=== PATIENT | male | born 1955 | race Caucasian/White ===

== ENCOUNTER 2022-01-09 11:30 | Emergency (ER) | payer OTHER, SELFPAY ==
[2022-01-09 12:09] VITALS: BP 135/80; PULSE 80; RESP 16; TEMP 36.4; O2SAT 96; BMI 27.8
--- NOTE | 2022-01-09 12:30 | CRLHL7_ITS ---
For Patients: As a result of the Century Cures Act, medical imaging exams and procedure reports are released immediately into your electronic medical record. You may view this report before your referring provider. If you have questions, please contact your health care provider. INDICATION: Dizziness. Sudden onset right sided headache. TECHNIQUE: CT head without contrast. COMPARISON: None. FINDINGS: Suboptimal evaluation secondary to motion artifact. Cerebral parenchyma: No evidence of acute territorial infarct. No acute intraparenchymal hemorrhage. No significant mass effect/midline shift. Normal doss-white matter differentiation. Extra-axial spaces: No extra-axial collection or hemorrhage. Ventricles: Unremarkable. Calvarium: Intact. Visualized paranasal sinuses/mastoid air cells: Polypoid mucosal thickening of the maxillary sinuses. Posterior fossa: No cerebellar tonsillar herniation. Visualized orbits: Thinning of the right lens. No acute abnormality. IMPRESSION: 1. No acute intracranial abnormality, within limitations of motion artifact. 2. Chronic bilateral maxillary sinusitis. Please note that all CT scans at this facility use dose modulation, iterative reconstruction, and/or weight-based dosing when appropriate to reduce radiation dose to as low as reasonably achievable. Dictated by Casey Mireles MD @ 01/09/2022 1:52:49 PM (Electronically Signed)
--- NOTE | 2022-01-09 12:32 | ED.GENADULT ---
HPI - General Adult General Time Seen by Provider: 12:32 Date Seen: 01/09/22 Chief complaint: Neuro Symptoms/Altered Deficit Stated complaint: dizziness/blood pressure/right eye pain Time Seen by Provider: 01/09/22 11:44 Source: patient History of Present Illness HPI narrative: Left eye due for the Alexys is a 66-year-old male with no real past medical history presents emerged department with with dizziness. Patient states that he has been around his sister's cats of the last 3 days, usually has allergies to them, he used some eyedrops. He was driving [address] when he developed some dizziness that started a couple hours ago, he had to pull his car over. The dizziness presents worse with head movement, he had trouble walking, did not have any falling from one side to the other, he did have a foreign body sensation worsen his right eye, he has had some increased tearing and congestion the recent exposure to cats. He was more concerned about the dizziness. 0 vomiting, no chest pain or shortness of breath, he denies any focal weakness. Denies any visual changes. No history of vertigo, no CAD or stroke history. He is not currently on any medications. Symptoms have improved, however he still has pain in his right eye. he does not have any headache. no history of migraines. Related Data Home Medications Medication Instructions Recorded Confirmed loratadine 10 mg tablet (Claritin) 10 mg PO DAILY 01/09/22 01/09/22 Previous Rx's Medication Instructions Recorded amoxicillin 500 mg-potassium 1 tab PO TID #20 tab 01/09/22 clavulanate 125 mg tablet (Augmentin) meclizine 25 mg tablet 25 mg PO TID #10 tab 01/09/22 Allergies Allergy/AdvReac Type Severity Reaction Status Date / Time No Known Drug Allergies Allergy Verified 01/09/22 12:14 Review of Systems Status of ROS: Reports: 10 or more systems reviewed and unremarkable except as noted in History and below [facility] Medical History (Updated 01/09/22 @ 14:24 by Daniel Santacruz MD) Cataract (lens) fragments in eye following cataract surgery, right eye Hyperlipemia Social History Smoking Status: Never smoker How often do you have a drink containing alcohol: 2-4 times a month AUDIT-C Alcohol total score: 2 Non-prescribed substance use: denies use Exam Narrative: Exam Narrative: General: Patient is no apparent distress, nontoxic in appearance. HEENT: Tympanic membranes within normal limits bilaterally, pupils equal round and reactive to light on the last, mildly fixed pupil which is reactive secondary to surgery cataract, extraocular muscles intact, mild conjunctival injection bilaterally. some lid swelling. Nose: Clear rhinorrhea. Mouth: Oropharynx clear and moist, symmetrical smile present Neck: Supple full range of motion Lungs: Clear to auscultation bilaterally: Heart: Normal sinus rhythm S1-S2 Abdomen: Soft nontender, bowel sounds present. Muscle skeletal: +5 strength upper lower extremity Neuro: GCS 15, cranial nerves 2-12 grossly intact, gait within normal limits, no focal deficit. Sharifa-Hallpike: Notable nystagmus when turning head to left. Pysch: Affect and mood normal Const: Vital Signs, click to edit/add: Vital Signs - 24 hr 01/09/22 12:09 01/09/22 14:30 01/09/22 14:37 Temperature 97.6 F 98.9 F 98.9 F Pulse Rate 69 Pulse Rate [Pulse Oximeter] 80 69 Respiratory Rate 16 14 12 Blood Pressure 153/93 H Blood Pressure [Ri ght Upper Arm] 135/80 153/93 H Pulse Oximetry 96 97 Course Course Hospital Course: AIDET performed. Vitals show mildly elevated blood pressure, will continue to monitor, no worrisome findings on exam, workup will include, 25 mg meclizine orally and scopolamine patch, will place IV, will obtain CT head without IV contrast, obtain EKG, CRP, CBC, CMP and TSH. Symptoms are improving. May also obtain ocular pressure at the eye clinic. Differential diagnosis includes subarachnoid hemorrhage, intracerebral hemorrhage, CORONER/MEDICAL EXAMINER vasculitis, CORONER/MEDICAL EXAMINER lesion, BPPV, labyrinthitis, Meniere's disease, fisted riders, migraine, MS, otitis media, viral syndrome, sinusitis, acute and closed angle glaucoma, temporal arteritis as well as other etiologies Reevaluation(s) Reevaluation #1: Patient is feeling better after above care given, EKG showed normal sinus rhythm, bpm 71, no ectopy or acute ST changes, no comparisons. CT head showed no acute intracranial abnormality, did show chronic maxillary sinusitis which is likely explaining his symptoms, blood pressure improved during his stay. He was ambulating to and from the restroom with no difficulty, dizziness resolved. otherwise reassuring, plan to discharge prescription for Augmentin to be given with the meclizine over the next 7-10 days, he can leave the scopolamine patch over the next 72 hours, appointment made to ophthalmology here in [place] today for for close follow-up and eye pressure evaluation. He should follow-up with a primary care provider over the next 7-10 days when he returns to [place]. Return precautions given Time: 14:25 Vital Signs Vital signs: Initial Vital Signs Temperature 97.6 F 01/09/22 12:09 Temperature Source Temporal Artery Scan 01/09/22 12:09 Pulse Rate 80 01/09/22 12:09 Pulse Rhythm 01/09/22 12:09 Respiratory Rate 16 01/09/22 12:09 Blood Pressure 135/80 01/09/22 12:09 Blood Pressure Mean 98 01/09/22 12:09 Blood Pressure Position Sitting 01/09/22 12:09 Pulse Oximetry 96 01/09/22 12:09 Oxygen Delivery Method 01/09/22 12:09 Vital Signs Temperature 97.6 F 01/09/22 12:09 Pulse Rate 80 01/09/22 12:09 Respiratory Rate 16 01/09/22 12:09 Blood Pressure 135/80 01/09/22 12:09 Pulse Oximetry 96 01/09/22 12:09 Temperature 98.9 F 01/09/22 14:37 Pulse Rate 69 01/09/22 14:37 Respiratory Rate 12 01/09/22 14:37 Blood Pressure 153/93 H 01/09/22 14:37 Pulse Oximetry 97 01/09/22 14:30 Medical Decision Making Lab Data Labs: Lab Results 01/09/22 01/09/22 01/09/22 Range/Units 13:05 13:05 13:05 WBC 5.96 (4.50-11.00) K/uL RBC 5.18 (4.30-5.90) m/uL Hgb 15.9 (13.5-17.5) gm/dL Hct 47.2 (37.0-53.0) % MCV 91 (80-100) fL MCH 31 (26-34) pg MCHC 34 (32-36) gm/dL RDW Coeff of Johana 12.5 (11.5-15.5) % Plt Count 149 (140-440) K/uL Neut % (Auto) 71.9 (42.0-72.0) % Lymph % (Auto) 16.6 L (20-44) % [place] % (Auto) 9.7 (0.0-11.0) % Eos % (Auto) 1.3 (0.0-7.0) % Baso % (Auto) 0.3 (0.0-3.0) % Neut # (Auto) 4.28 (1.7-7.0) K/uL Lymph # (Auto) 1.00 (0.90-2.90) K/uL [place] # (Auto) 0.60 (0.00-0.90) K/UL Eos # (Auto) 0.08 (0.00-0.50) K/uL Baso # (Auto) 0.02 (0.00-0.30) K/uL Abs Immat Gran (auto) 0.01 (0.00-0.30) K/uL C-Reactive Protein < 0.5 L (0.5-1.0) mg/dL TSH 1.170 (0.270-4.20) uIU/mL Discharge Plan Discharge Clinical Impression: Sinusitis, maxillary, chronic, Dizziness Patient Disposition: Home, Self-Care Condition: Improved Instructions: Sinusitis (ED), Dizziness (ED) Additional Instructions: To take the Augmentin 875 mg twice daily for 10 days, Meclicine 25 mg every 6 hours as needed for dizziness, you should also follow up with his primary care provider when he returns to [place] in the next 7-10 days. Reasons to return given verbally. Activity Level: No Restrictions Prescriptions: New amoxicillin-pot clavulanate [Augmentin] 500-125 mg tablet 1 tab PO TID Qty: 20 0RF meclizine 25 mg tablet 25 mg PO TID Qty: 10 0RF No Action loratadine [Claritin] 10 mg tablet 10 mg PO DAILY 0RF Stand Alone Forms: [employer] Info Instructions
[2022-01-09] MEDS: SCOPOLAMINE 1 MG/3 DAY PATCH 1 PATCH TRANSDERMA (12:52)
[2022-01-09] MEDS: MECLIZINE HCL 25 MG TABLET PO (12:54)
[2022-01-09 13:15] LABS: Basophils Absolute Auto 0.02 K/uL (0.00-0.30); Basophils Percent Auto 0.3 % (0.0-3.0); Eosinophils Absolute Auto 0.08 K/uL (0.00-0.50); Eosinophils Percent Auto 1.3 % (0.0-7.0); Hematocrit 47.2 % (37.0-53.0); Hemoglobin* 15.9 gm/dL (13.5-17.5); Immature Granulocytes Abs Auto 0.01 K/uL (0.00-0.30); Lymphocytes Percent Auto 16.6 % (20-44); Mean Corpuscular HGB Conc 34 gm/dL (32-36); Mean Corpuscular Hemoglobin 31 pg (26-34); Mean Corpuscular Volume 91 fL (80-100); Monocytes Percent Auto 9.7 % (0.0-11.0); Neutrophils Absolute Auto 4.28 K/uL (1.7-7.0); Neutrophils Percent Auto 71.9 % (42.0-72.0); Platelet Count* 149 K/uL (140-440); RDW Coefficient of Variation % 12.5 % (11.5-15.5); Red Blood Count 5.18 m/uL (4.30-5.90); White Blood Count* 5.96 K/uL (4.50-11.00)
[2022-01-09 13:49] LABS: C Reactive Protein* < 0.5 mg/dL (0.5-1.0)
[2022-01-09] MEDS: TETRACAINE 0.5% OPHTH 2 DROP EYE-RIGHT (14:00)
[2022-01-09 14:30] VITALS: BP 153/93; PULSE 69; RESP 14; TEMP 37.2; O2SAT 97
[2022-01-09 14:37] VITALS: BP 153/93; PULSE 69; RESP 12; TEMP 37.2
[2022-01-09 21:18] LABS: Slide Review Reflex No
== END 2022-01-09 14:39 | disposition home or self-care (01) ==
PROVIDERS: Emergency Provider Student in an Organized Health Care Education/Training Program
DX: J32.0 Chronic maxillary sinusitis (principal); R42 Dizziness and giddiness
CPT/HCPCS: 36415; 70450; 84443; 85025; 86140; 93005; 99283; 99284; 99285; A9270